=== PATIENT | male | born 1970 | race Caucasian/White ===

== ENCOUNTER → 2022-01-17 09:18 | Outpatient (CLI) | payer BC, SELFPAY ==
[2022-01-17 18:24] LABS: Alanine Aminotransferase 25 U/L (12-78); Albumin Level 4.3 g/dl (3.5-5.0); Albumin/Globulin Ratio 1.7 (1.1-1.8); Alkaline Phosphatase 64 U/L (38-126); Anion Gap 15.5 mEq/L (5-15); Aspartate Amino Transferase 26 U/L (17-59); Bilirubin,Total 0.9 mg/dl (0.2-1.3); Blood Urea Nitrogen 18 mg/dl (9-20); Calcium 9.7 mg/dl (8.4-10.2); Carbon Dioxide 26 mmol/L (22.0-30.0); Chloride 102 mmol/L (98-107); Chol/HDL Ratio 4.2 (1-3.5); Cholesterol 158 mg/dl (140-200); Estimated Glomerular Filt Rate 88 ml/min (>60); GFR (African American) 107 ML/MIN (>60); Globulin 2.5 g/dL (1.3-3.2); Glucose 134 mg/dl (74-100); HDL Cholesterol 38 mg/dl (40-60); Potassium 4.5 mmoL/L (3.5-5.1); Sodium 139 mmol/L (136-145); Total Protein,Serum 6.8 g/dl (6.3-8.2); Triglycerides 183 mg/dl (30-150); VLDL Cholesterol 37 mg/dL (0-40)
[2022-01-17 18:28] LABS: Hemoglobin A1C 7.3 % (4.0-6.0)
[2022-01-17 18:35] LABS: Direct LDL Cholesterol 87.82 mg/dL (100-129)
[2022-01-17 18:55] LABS: Prostate Specific Ag Screen 0.5 ng/ml (0.0-4.0)
== END ==
PROVIDERS: PCP Family Medicine; Visit Provider Family Medicine
DX: E11.9 Type 2 diabetes mellitus without complications (principal); I10 Essential (primary) hypertension; E78.5 Hyperlipidemia, unspecified; Z79.84 Long term (current) use of oral hypoglycemic drugs; Z12.5 Encounter for screening for malignant neoplasm of prostate
CPT/HCPCS: 80053; 80061; 83036; G0103

== ENCOUNTER 2024-10-21 13:38 | Outpatient (CLI) | payer BC, SELFPAY ==
--- OUTSIDE RECORDS SUMMARY | 2024-08-05 07:15 | XMS_ITS ---
[facility] Organization [facility] Address [address] [facility] [address] [id number] Care Team Providers Care Batch Maker Name Role Phone Sharyn Shahid Primary Care Provider Samantha Efrain Unavailable [phone] Allergies No Known Allergies REASON FOR VISIT elbow swollen right Medications Medication SIG (Take, Route, Frequency, Duration) Notes Start Date End Date Status Cephalexin 500 MG 1 capsule Orally every 12 hours; Duration: 10 days 08/05/2024 Active hydroCHLOROthiazide 25 MG 1 tab(s) orall y once a day Active Sulfamethoxazole-Trimethopri m 800-160 MG 1 tablet Orally twice a day; Duration: 10 days 08/05/2024 Active Atorvastatin Calcium 40 MG 1 tab(s) oral ly At Bed Time Active Meclizine HCl 25 MG 1 tab(s) orally 1 tab q6 hr, prn Not-Taking Toprol XL 25 MG 1 tab(s) orally once a day 05/24/2013 Not-Taking Nitroglycerin 0.4 MG 1 tab(s) sublingually every 5 minutes x 3 prn cp 05/24/2013 Not-Taking Glimepiride 4 MG 1 tablet with breakfast or the first main meal of the day Orally Once a day 03/05/2024 Active metFORMIN HCl 500 MG 2 tab(s) orally 2 times a day Active Glimepiride 2 MG 1 tablet with breakfast or the first main meal of the day Orally Once a day Active Aspirin Adult Low Dose 81 MG 1 tab(s) or ally once a day 05/24/2013 Active Vital Signs Blood pressure systolic 122 mm Hg 06/02/20 25 Blood pressure diastolic 90 mm Hg 025 Heart Rate 88 /min 08/05/2024 Height 67.75 in 08/05/2024 Weight 232.4 lbs 08/05/2024 BMI 35.59 kg/m2 08/05/2024 Encounters Encounter Location Date Provider Diagnosis [facility] [address] [place] [address] [place] [id number] 08/05/2024 Efrain Singh Right forearm cellulitis L03.113 Assessments Encounter Date Diagnosis (ICD Code) Assessment Notes Treatment Notes Treatment Clinical Notes Section Notes 08/05/2024 Right forearm cellulitis (ICD-10 - L03.113) Plan Of Treatment Medication Medication Name Sig Start Date Stop Date Notes Cephalexin 500 MG 1 capsule Orally fede ry 12 hours; Duration: 10 days 08/05/2024 Sulfamethoxazole-Trimethopri m 800-160 MG 1 tablet Orally twice a day; Duration: 10 days 08/05/2024 Next Appt Details Follow Up: via phone to repo rt progress, Reason: Provider Name:Alla Cortez er, 10/21/2024 01:00:00 PM, [address] [place] [address], [address], [place], [id number], Provider Name:Sharyn Quintero, 02/25/2025 09:00:00 AM, [address] [place] [address], [facility], [place], [id number], Progress Notes * Leonardo CASTLEDOB: 9 (53 yo M)Acc No.[id number]:08/05/2024 Progress Notes Patient: Leonardo GAMING Provider: Aleah Singh M.D. :1970 A ge:53 Y S ex:Male Date:08/05/2024 Address:[address] [place], [place] [phone] Pcp:Sharyn Shahid Subjective: * Chief Complaints: * 1 . Elbow swollen right. * HPI: E lbow/Arm: 53 year old male presents with c/o pain. c/o swelling?Pt presents today with c/o pain and swelling in the right arm and elbow. Pt sts that he felt like something had bitten his elbow and he squeezed it and a small amount of puss came out but sts that the redness and swelling is spreading. Pt sts that he can still bend his arm and has full ROM but is concerned that it is spreading. * ROS: D ERMATOLOGY: no R slava. n o H suzanne. G ASTROENTEROLOGY: no V omiting. n o D iarrhea. U ROLOGY: no D ifficulty urinating. n o B lood in urine. * Medical History: M eniere's disease, Type 2 DM, Dyslipidemia, Declines immunizations - 07/2021, Declines LDCT 02/2023; 02/2024. * Surgical History: l t. wrist 2004, vasectomy 1990, C-scope - 09/2021 / Dr. Guthrie/ polyps x 5; repeat in 5 years . * Family History: F ather: , emphysema. M other: alive. 1 sister(s) . 1 son(s) , 1 daughter(s) - healthy. . * Social History: C URRENT TOBACCO USE S moking Status: Patient does smoke, packs per day: 1, number of cigarettes per day: 20, Since age of: 20, Smoking preference: cigarettes. C affeine: yes, frequency:coffee and tea,qd. Home smoke detector use: yes. Marital Status: Single. Alcohol: Yes, Type: , Frequency: ,Years: , Determination:, rare. * Medications: T aking Atorvastatin Calcium 40 MG Tablet 1 tab(s) orally At Bed Time , Taking hydroCHLOROthiazide 25 MG Tablet 1 tab(s) orally once a day , Taking metFORMIN HCl 500 MG Tablet 2 tab(s) orally 2 times a day , Taking Aspirin Adult Low Dose 81 MG Tablet Delayed Release 1 tab(s) orally once a day , Taking Glimepiride 2 MG Tablet 1 tablet with breakfast or the first main meal of the day Orally Once a day , Taking Glimepiride 4 MG Tablet 1 tablet with breakfast or the first main meal of the day Orally Once a day , Not-Taking Nitroglycerin 0.4 MG Tablet Sublingual 1 tab(s) sublingually every 5 minutes x 3 prn cp , Not-Taking Toprol XL 25 MG Tablet Extended Release 24 Hour 1 tab(s) orally once a day , Not-Taking Meclizine HCl 25 MG Tablet 1 tab(s) orally 1 tab q6 hr, prn , Discontinued Cefuroxime Axetil 500 MG Tablet 1 tablet Orally every 12 hrs , Discontinued Ciprofloxacin-dexAMETHasone 0.3-0.1 % Suspension 4 drops into affected ear Otic Twice a day , Medication List reviewed and reconciled with the patient * Allergies: N .K.D.A. Objective: * Vitals: W t: 232.4, Temp: 98.3, BP: 122/90, HR: 88, Nurse: BRITT, Ht: 67.75, BMI:35.59. * Examination: G eneral Examination: General Appearance: N AD. S kin: s ome edema and dull skin redness over the right olecranon and extending to the medial side of the elbow. ? Assessment: * Assessment: [facility]. [facility] - L03.113 (Primary) Plan: * Treatment: * Follow Up: v ia phone to report progress * Images: Billing Information: * Visit Code: 94058 Office Visit, Est Pt., Level 3. * Procedure Codes: * Electronic signature of Narda Singh MD on 10/21/2024 at 01:41 PM EDT Sign off status: Pending * Provider: Aleah Singh M.D. Date: 08/05/2024 Generated for Christopher chaparro/Judith/Sandra on: 10/21/2024 01:41 PM EDT History and Physical Notes * HPI (History of Present Illness) Category Sub-Category Detail Notes Category Not es Elbow/Arm pain swelling Pt presents today wi th c/o pain and swelling in the right arm and elbow. Pt sts that he felt like something had bitten his elbow and he squeezed it and a small amount of puss came out but sts that the redness and swelling is spreading. Pt sts that he can still bend his arm and has full ROM but is concerned that it is spreading Examination Category Sub-Category Detail Notes Category Not es General Examination General Appearance: NAD Skin: some edema and dull skin redness over the right olecranon and extending to the medial side of the elbow
--- OUTSIDE RECORDS SUMMARY | 2024-08-22 05:15 | XMS_ITS ---
Author Organization [facility] Address [address] [facility] [address] [place] [id number] Care Team Providers Care Drug Abuse Technician Name Role Phone Sharyn Shahid Primary Care Provider [phone] Allergies No Known Allergies Results Component Value Reference Range Notes Glycohemoglobin A1c (in hous e) Reviewed date:08/27/2024 01:14:34 PM Interpretation:8.0% Performing Lab: Notes/Report: 8.0% glycohemoglobin 8.0% 5 - 6.5 % P-Comprehensive Metabolic Pa robert (CMP) Reviewed date:08/27/2024 01:14:34 PM Interpretation:FBS 142 Performing Lab: Notes/Report: Test performed by [facility], [facility] [address] [place] [address] , [address], [place] [address] Tex Jewell MD, Highway Maintainer CLIA: [id number] Sodium 139 135-145 mmol/L Potassium 4.6 3.5-5.3 mmol/L Chloride 102 97-108 mmol/L CO2 25 22-32 mmol/L Glucose 142 65-99 mg/dL BUN 10 6-20 mg/dL Creatinine 0.88 0.70-1.30 mg/dL Calcium 10.0 8.6-10.4 mg/dL eGFR by Creatinine 101 >59 mL/min/1.73m2 Protein 7.0 6.0-8.3 g/dL Albumin 4.3 3.5-5.3 g/dL Alkaline Phosphatase 57 40-129 IU/L ALT (SGPT) 22 <5-55 IU/L AST (SGOT) 15 <5-46 IU/L Bilirubin, Total 0.8 <0.2-1.2 mg/dL A/G Ratio 1.6 1.1-2.5 P-Lipid Panel Reviewed date:08/27/2024 01:14:34 PM Interpretation:LDL 62 Performing Lab: Notes/Report: Test performed by [facility] [address] [facility] [address], [place] [address] Tex Jewell MD, Highway Maintainer CLIA: [id number] Cholesterol 136 <200 mg/dL Triglycerides 199 <150 mg/dL HDL Cholesterol 34 >39 mg/dL Cholesterol / HDL Ratio 4.00 0.00-4.99 Ratio Non-HDL Cholesterol 102 <130 mg/dL LDL Cholesterol (Calculation) 62 <130 mg/dL LDL Cholesterol Levels* Less than 100 mg/dL Optimal 100 to 129 mg/dL Near Optimal/ Above Optimal 130 to 159 mg/dL Borderline High 160 to 189 mg/dL High 190 mg/dL and above Very High * Categories as recommended by the 2004 ATPIII guidelines LDL/HDL Ratio 1.8 <3.3 Ratio LDL Cholesterol Patient History Test Date: 08/24/2023 LDL Results: 63 Units: mg/dL % Change: -5% Test Date: 02/22/2024 LDL Results: 63 Units: mg/dL % Change: 0% Test Date: 08/22/2024 LDL Results: 62 Units: mg/dL % Change: -1% P-PSA Reviewed date:08/27/2024 01:14:34 PM Interpretation:0.4 Performing Lab: Notes/Report: Test performed by [facility], [address] , [facility], [place] [address] Tex Jewell MD, Highway Maintainer CLIA: [id number] PSA 0.40 <4.00 ng/mL Please note this is an ultrasensitive PSA assay with a lower limit of detection of 0.014 ng/mL. This test is performed by the [employer] ECLIA methodology. Values obtained with different assay methods or kits cannot be directly compared. REASON FOR VISIT 6 months, Needs labs with PSA, low dose chest CT, diabetic eye exam, Tdap, & shingles vaccine Medications Medication SIG (Take, Route, Frequency, Duration) Notes Start Date End Date Status Toprol XL 25 MG 1 tab(s) orally once a day 05/24/2013 Not-Taking Meclizine HCl 25 MG 1 tab(s) orally 1 tab q6 hr, prn Not-Taking Glimepiride 4 MG 1 tablet with breakfast or the first main meal of the day Orally Once a day 03/05/2024 Active Sulfamethoxazole-Trimethopri m 800-160 MG 1 tablet Orally twice a day; Duration: 10 days Active Cephalexin 500 MG 1 capsule Orally every 12 hours; Duration: 10 days Active Nitroglycerin 0.4 MG 1 tab(s) sublingually every 5 minutes x 3 prn cp 05/24/2013 Not-Taking Atorvastatin Calcium 40 MG 1 tab(s) oral ly At Bed Time Active hydroCHLOROthiazide 25 MG 1 tab(s) orall y once a day Active Aspirin Adult Low Dose 81 MG 1 tab(s) or ally once a day 05/24/2013 Active metFORMIN HCl 500 MG 2 tab(s) orally 2 times a day Active Vital Signs Blood pressure systolic 110 mm Hg 08/23/19 25 Blood pressure diastolic 70 mm Hg 025 Heart Rate 72 /min 08/22/2024 Height 67.75 in 08/22/2024 Weight 228.8 lbs 08/22/2024 BMI 35.04 kg/m2 08/22/2024 Encounters Encounter Location Date Provider Diagnosis [facility] [address] [facility] [address] [place], [place] [id number] 08/22/2024 R Stan Shahid Right forearm cellulitis L03.113 ; Type 2 diabetes mellitus without complication, without long-term current use of insulin E11.9 ; Dyslipidemia E78.5 ; Meniere's disease of both ears H81.03 ; Tobacco use disorder Z72.0 and Screening for prostate cancer Z12.5 Assessments Encounter Date Diagnosis (ICD Code) Assessment Notes Treatment Notes Treatment Clinical Notes Section Notes 08/22/2024 Right forearm cellulitis (ICD-10 - L03.113) 08/22/2024 Type 2 diabetes mellitus without complication, without long-term current use of insulin (ICD-10 - E11.9) 08/22/2024 Dyslipidemia (ICD-10 - E78.5) 08/22/2024 Meniere's disease of both ears (ICD-10 - H81.03) 08/22/2024 Tobacco use disorder (ICD-10 - Z72.0) Declines LDCT 08/22/2024 Screening for prostate cancer (ICD-10 - Z12.5) Plan Of Treatment Medication Medication Name Sig Start Date Stop Date Notes Glimepiride 4 MG 1 tablet with breakf ast or the first main meal of the day Orally Once a day 03/05/2024 Sulfamethoxazole-Trimethopri m 800-160 MG 1 tablet Orally twice a day; Duration: 10 days Cephalexin 500 MG 1 capsule Orally fede ry 12 hours; Duration: 10 days Atorvastatin Calcium 40 MG 1 tab(s) oral ly At Bed Time hydroCHLOROthiazide 25 MG 1 tab(s) orall y once a day metFORMIN HCl 500 MG 2 tab(s) orally 2 t imes a day Treatment Notes Assessment Notes Tobacco use disorder Declines LDCT Next Appt Details Follow Up: 6 Months, Reason: Provider Name:Alla Jacob Diego er, 10/21/2024 01:00:00 PM, [address] [facility] [address], [address], [place], [place], [id number], Provider Name:Sharyn Casillas et, 02/25/2025 09:00:00 AM, [address] [facility], [address], [place], [place], [id number], Progress Notes * Leonardo CASTLEDOB: 9 (53 yo M)Acc No.[id number]:08/22/2024 Progress Notes Patient: Leonardo GAMING Provider: Sharyn Shahid M.D. :1970 A ge:53 Y S ex:Male Date:08/22/2024 Address:[address] [place] [address] Subjective: * Chief Complaints: * 1 . 6 months. 2. Needs labs with PSA, low dose chest CT, diabetic eye exam, Tdap, & shingles vaccine. * HPI: H PI: 53 year old male presents with c/o Patient is here today for?Pt is here today for a 6 month check up. Pt is fasting. E lbow/Arm: Further to previous office visit, the swelling and redness of his right elbow has improved but not completely resolved. * ROS: D ERMATOLOGY: no R slava. [...] orally once a day , Taking Glimepiride 4 MG Tablet 1 tablet with breakfast or the first main meal of the day Orally Once a day , Taking Cephalexin 500 MG Capsule 1 capsule Orally every 12 hours , Taking Sulfamethoxazole-Trimethoprim 800-160 MG Tablet 1 tablet Orally twice a day , Not-Taking Nitroglycerin 0.4 MG Tablet Sublingual 1 tab(s) sublingually every 5 minutes x 3 prn cp , Not-Taking Toprol XL 25 MG Tablet Extended Release 24 Hour 1 tab(s) orally once a day , Not-Taking Meclizine HCl 25 MG Tablet 1 tab(s) orally 1 tab q6 hr, prn , Medication List reviewed and reconciled with the patient * Allergies: N .K.D.A. Objective: * Vitals: W t: 228.8, Temp: 98.6, BP: 110/70, HR: 72, Nurse: [facility], Ht: 67.75, BMI:35.04. * Examination: G eneral Examination: HEENT: L eft external canal is swollen and mostly occluded with debris. Attempted to irrigate ear caused too much discomfort.. O ral cavity: n o lesions, mucosa moist and WNL, no erythema. H eart: R SR. L ungs: C oarse breath sounds. No rales or wheezes. E xtremities: n o leg edema. Mild residual swelling and induration over the olecranon process. Range of motion of the elbow is full. ? Assessment: * Assessment: 1. R ight forearm cellulitis - L03.113 (Primary) 2 . T ype 2 diabetes mellitus without complication, without long-term current use of insulin - E11.9 3 . D yslipidemia - E78.5 4 . M eniere's disease of both ears - H81.03 5. T obacco use disorder - Z72.0 6 . S creening for prostate cancer - Z12.5 Plan: * Treatment: 2. T ype 2 diabetes mellitus without complication, without long-term current use of insulin Refill metFORMIN HCl Tablet, 500 MG, 2 tab(s), orally, 2 times a day, 360, Refills 1; R efill Glimepiride Tablet, 4 MG, 1 tablet with breakfast or the first main meal of the day, Orally, Once a day, 90, Refills 1. L AB: Glycohemoglobin A1c (in house) (Collection Date & Time - 08/22/2024) 8 .0% Value Reference Range g lycohemoglobin 8.0% 5 - 6.5 % * Carol Smith 08/22/2024 10:3 8:54 AM EDT > Sharyn Shahid 08/27/2024 01:14:16 PM EDT > See phone encounter 3.?Dyslipidemia? Refill Atorvastatin Calcium Tablet, 40 MG, 1 tab(s), orally, At Bed Time, 90, Refills 1.?LAB: P-Comprehensive Metabolic Panel (CMP) (Collection Date & Time - 08/22/2024 08:42 AM)?FBS 142* Value Reference Range A /G Ratio 1.6 1.1-2.5 - * A lbumin 4.3 3.5-5.3 - g/dL * A lkaline Phosphatase 57 40-129 - IU/L * A LT (SGPT) 22 <5-55 - IU/L * A ST (SGOT) 15 <5-46 - IU/L * B ilirubin, Total 0.8 <0.2-1.2 - mg/dL * B UN 10 6-20 - mg/dL * C alcium 10.0 8.6-10.4 - mg/dL * C hloride 102 97-108 - mmol/L * C O2 25 22-32 - mmol/L * C reatinine 0.88 0.70-1.30 - mg/dL * G lucose 142 H 65-99 - mg/dL * P otassium 4.6 3.5-5.3 - mmol/L * S odium 139 135-145 - mmol/L * P rotein 7.0 6.0-8.3 - g/dL * e GFR by Creatinine 101 >59 - mL/min/1.73m2 * Sharyn Shahid 08/27/2024 01:14:16 PM EDT > See phone encounter ?LAB: P-Lipid Panel (Collection Date & Time - 08/22/2024 08:42 AM)?LDL 62* Value Reference Range C holesterol / HDL Ratio 4.00 0.00-4.99 - Ratio * C holesterol 136 <200 - mg/dL * H DL Cholesterol 34 L >39 - mg/dL * L DL Cholesterol (Calculation) 62 <130 - mg/d L * L DL/HDL Ratio 1.8 <3.3 - Ratio * N on-HDL Cholesterol 102 <130 - mg/dL * T riglycerides 199 H <150 - mg/dL * Sharyn Shahid 08/27/2024 01:14:16 PM EDT > See phone encounter 4.?Meniere's disease of both ears? Refill hydroCHLOROthiazide Tablet, 25 MG, 1 tab(s), orally, once a day, 90, Refills 1.??5.?Tobacco use disorder? Notes: Declines LDCT??6.?Screening for prostate cancer?LAB: P-PSA (Collection Date & Time - 08/22/2024 08:42 AM)?0.4* Value Reference Range P SA 0.40 <4.00 - ng/mL * Sharyn Shahid 08/27/2024 01:14:16 PM EDT > See phone encounter * Procedure Codes: 8 3036 GLYCATED HEMOGLOBIN TEST, Modifiers: QW , 3052F HG A1C>EQUAL 8.0%<EQUAL 9.0%, G8783 BP SCR PRFRM RCMDD DEFIND SCR INTVL, G8752 MOST RECENT SYSTOLIC BP < 140MM HG, G8754 MOST RECENT DIASTOLIC BP < 90MM HG * Follow Up: 6 Months * Images: Billing Information: * Visit Code: 65829 Office Visit, Est Pt., Level 4. * Procedure Codes: 08979 GLYCATED HEMOGLOBIN TEST. Modifiers: QW 3052F HG A1C>EQUAL 8.0%<EQUAL 9.0%. G8783 BP SCR PRFRM RCMDD DEFIND SCR INTVL. G8752 MOST RECENT SYSTOLIC BP < 140MM HG. G8754 MOST RECENT DIASTOLIC BP < 90MM HG. * Electronic signature of Sharyn Shahid MD on 10/21/2024 at 01:41 PM EDT Sign off status: Pending * Provider: Sharyn Shahid M.D. Date: 0 08/22/2024 Generated for Christopher chaparro/Judith/Asifitting on: 0 10/21/2024 01:41 PM EDT History and Physical Notes * HPI (History of Present Illness) Category Sub-Category Detail Notes Category Not es HPI Patient is here today for Pt is here today for a 6 month check up. Pt is fasting Examination Category Sub-Category Detail Notes Category Not es General Examination HEENT: Left externa l canal is swollen and mostly occluded with debris. Attempted to irrigate ear caused too much discomfort. Heart: RSR Lungs: Coarse breath sounds . No rales or wheezes Extremities: no leg edema. Mild r esidual swelling and induration over the olecranon process. Range of motion of the elbow is full Oral cavity: no lesions, mucosa m oist and WNL, no erythema
--- OUTSIDE RECORDS SUMMARY | 2024-10-21 13:41 | XMS_ITS | Encounter Summary ---
Author Organization [place] [address] Care Team Providers Care Drop Clipper Name Role Phone Sharyn Shahid Primary Care Provider [phone] Encounter Details Date Type Department Care Team (Late st Contact Info) Description 06/04/2015 Hospital Encounter EDG LAB [place] [phone] Social History Tobacco Use Types Packs/Day Years Used Date Smoking Tobacco: Every Day Cigarettes 1 25 Smokeless Tobacco: Never Alcohol Use Standard Drinks/Week Comments No 0 (1 standard drink = 0.6 oz pur e alcohol) Sex and Gender Information Value Date Recorded Sex Assigned at Not on file Legal Sex Male 6:18 PM EDT Gender Identity Not on file Sexual Orientation Not on file documented as of this encounter Plan of Treatment Not on file documented as of this encounter Visit Diagnoses Not on filedocumented in this encounter Care Teams Drop Clipper Relationship Specialty Start Date End Date Sharyn Shahid [address] [place] [address] [address] [place] [id number] PCP - General Family Medicine 05/06/13 documented as of this encounter
--- OUTSIDE RECORDS SUMMARY | 2024-10-21 13:41 | XMS_ITS | Patient Health Record ---
Author Organization [facility] Address [address] [facility] 36 [facility] [address] [place] [id number] Care Team Providers Care Skip Pitman Name Role Phone Sharyn Shahid Primary Care Provider [phone] Alla Zuñiga Unavailable [phone] Efrain Singh Unavailable [phone] Allergies No Known Allergies Results Component Value Reference Range Notes Glycohemoglobin A1c (in hous e) Reviewed date:08/27/2024 01:14:34 PM Interpretation:8.0% Performing Lab: Notes/Report: 8.0% glycohemoglobin 8.0% 5 - 6.5 % P-Comprehensive Metabolic Pa robert (CMP) Reviewed date:08/27/2024 01:14:34 PM Interpretation:FBS 142 Performing Lab: Notes/Report: Test performed by [facility], [facility] , [address], [place] [address] Tex Jewell MD, [employer]person [employer] CLIA: [id number] Sodium 139 135-145 mmol/L Potassium 4.6 3.5-5.3 [...] 62 Performing Lab: Notes/Report: Test performed by [facility], [address] , [place] [address] Tex Jewell MD, Salesperson [employer] CLIA: [id number] Cholesterol 136 <200 mg/dL Triglycerides 199 <150 [...] Interpretation:0.4 Performing Lab: Notes/Report: Test performed by [facility] [address] , [place] [address] Tex Jewell MD, Salesperson [employer] CLIA: [id number] PSA 0.40 <4.00 ng/mL Please note this is an ultrasensitive PSA assay with a lower limit of detection of 0.014 ng/mL. This test is performed by the [employer] ECLIA methodology. Values obtained with different assay methods or kits cannot be directly compared. CBC Fingerstick (in house) ( Not yet reviewed by provider) Interpretation: Performing Lab: Notes/Report: wbc 10.2 3.5 - 10 lym 32.7% 15 - 50 mid 7.2% 2 - 15 gran 60.1% 35 - 80 rbc 5.37 3.5 - 5.5 hgb 17.1 11.5 - 16.5 hct 50.6 35 - 55 mcv 94.1 75 - 100 mch 31.7 25 - 35 mchc 33.7 31 - 38 plat 230 100 - 400 Glycohemoglobin A1c (in hous e) Reviewed date:03/05/2024 08:36:48 AM Interpretation:7.9 Performing Lab: Notes/Report: 7.9 glycohemoglobin 7.9% 5 - 6.5 % P-Comprehensive Metabolic Pa robert (CMP) Reviewed date:03/05/2024 08:36:48 AM Interpretation:gluc 150 Performing Lab: Notes/Report: Test performed by [facility] [address] [place] [address] , [address], [place] [address] Tex Jewell MD, Salesperson [employer] CLIA: [id number] Sodium 139 135-145 mmol/L Potassium 4.5 3.5-5.3 mmol/L Chloride 104 97-108 mmol/L CO2 25 22-32 mmol/L Glucose 150 65-99 mg/dL BUN 10 6-20 mg/dL Creatinine 1.03 0.70-1.30 mg/dL Calcium 9.5 8.6-10.4 mg/dL eGFR by Creatinine 86 >59 mL/min/1.73m2 Protein 6.9 6.0-8.3 g/dL Albumin 4.2 3.5-5.3 g/dL Alkaline Phosphatase 58 40-129 IU/L ALT (SGPT) 20 <5-55 IU/L AST (SGOT) 14 <5-46 IU/L Bilirubin, Total 1.1 <0.2-1.2 mg/dL A/G Ratio 1.6 1.1-2.5 P-Lipid Panel Reviewed date:03/05/2024 08:36:48 AM Interpretation:trigs 165, hdl 37 Performing Lab: Notes/Report: Test performed by [facility] [address] [place] [address] , [address], [place] [address] Tex Jewell MD, Salesperson [employer] CLIA: [id number] Cholesterol 133 <200 mg/dL Triglycerides 165 <150 mg/dL HDL Cholesterol 37 >39 mg/dL Cholesterol / HDL Ratio 3.59 0.00-4.99 Ratio Non-HDL Cholesterol 96 <130 mg/dL LDL Cholesterol (Calculation) 63 <130 mg/dL LDL Cholesterol Levels* Less than 100 mg/dL Optimal 100 to 129 mg/dL Near Optimal/ Above Optimal 130 to 159 mg/dL Borderline High 160 to 189 mg/dL High 190 mg/dL and above Very High * Categories as recommended by the 2004 ATPIII guidelines LDL/HDL Ratio 1.7 <3.3 Ratio LDL Cholesterol Patient History Test Date: 02/21/2023 LDL Results: 67 Units: mg/dL % Change: +24% Test Date: 08/24/2023 LDL Results: 63 Units: mg/dL % Change: -5% Test Date: 02/22/2024 LDL Results: 63 Units: mg/dL % Change: 0% Medications Medication SIG (Take, Route, Frequency, Duration) Notes Start Date End Date Status Aspirin Adult Low Dose 81 MG 1 tab(s) or ally once a day 05/24/2013 Active Atorvastatin Calcium 40 MG 1 tablet Oral ly Once a day at bedtime; Duration: 90 days Active Nitroglycerin 0.4 MG 1 tab(s) sublingually every 5 minutes x 3 prn cp 05/24/2013 Not-Taking Doxycycline Monohydrate 100 MG 1 capsule Orally twice a day; Duration: 7 days 10/21/2024 Active Toprol XL 25 MG 1 tab(s) orally once a day 05/24/2013 Not-Taking Meclizine HCl 25 MG 1 tab(s) orally 1 tab q6 hr, prn Not-Taking hydroCHLOROthiazide 25 MG 1 tab(s) orall y once a day Active metFORMIN HCl 500 MG 2 tab(s) orally 2 times a day Active Glimepiride 4 MG 1 tablet with breakfast or the first main meal of the day Orally Once a day 03/05/2024 Active Farxiga 5 MG 1 tablet Orally Once a day 08/27/2024 Active Immunizations Vaccine Route Administration Date Status Comme nts DT, 7 YEARS OR OLDER Unknown 05/10/1996 Administered Problems Problem Type SNOMED Code ICD Code Onset Dates Problem Status W/U Status Risk Notes Problem Otitis externa (4885942) Otitis externa (H60.90) Active confirmed Problem Dyslipidemia (714145069) Dyslipidemia (E78.5) Active confirmed Problem Type II diabetes mellitus without complication (401237652) Type 2 diabetes mellitus without complication, without long-term current use of insulin (E11.9) Active confirmed Problem Menieres disease (66274120) 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 Vital Signs Heart Rate 68 /min 10/21/2024 Blood pressure diastolic 90 mm Hg 10/21/2024 Height 67.75 in 10/21/2024 Blood pressure systolic 130 mm Hg 10/21/2024 Weight 223.2 lbs 10/21/2024 BMI 34.18 kg/m2 10/21/2024 Encounters Encounter Location Date Provider Diagnosis [facility] [address] [place] [id number] 02/22/2024 R Stan Shahid Type 2 diabetes mellitus without complication, without long-term current use of insulin E11.9 ; Dyslipidemia E78.5 ; Meniere's disease of both ears H81.03 ; Tobacco use disorder Z72.0 and Otitis externa H60.90 [facility] [address] [place] [id number] 08/05/2024 Efrain [place] Right forearm cellulitis L03.[address] [place] [address] [facility] [address] [place] [id number] 08/22/2024 R Stan Avitiafleet Right forearm cellulitis L03.113 ; Type 2 diabetes mellitus without complication, without long-term current use of insulin E11.9 ; Dyslipidemia E78.5 ; Meniere's disease of both ears H81.03 ; Tobacco use disorder Z72.0 and Screening for prostate cancer Z12.5 Brad [address] [facility] [address] [place] [id number] 10/21/2024 Alla Zuñiga Acute URI J06.9 ; Ac yavapai-apache bronchitis, unspecified organism J20.9 ; Insect bite (nonvenomous) of lower back and pelvis, initial encounter S30.860A and Bitten or stung by nonvenomous insect and other nonvenomous arthropods, initial encounter W57.XXXA Brad [address] [facility] [address] [place] [id number] 03/05/2024 R Stan Zhera Type 2 diabetes mellitus without complication, without long-term current use of insulin E11.9 Brad [address] [place] [id number] 08/09/2024 R Stan Cortezt [place] [address] [place], [place] [id number] 08/19/2024 R Stan Webbeet [place] [address] [place] [id number] 08/27/2024 R Stan Shahid Assessments Encounter Date Diagnosis (ICD Code) Assessment Notes Treatment Notes Treatment Clinical Notes Section Notes 02/22/2024 Dyslipidemia (ICD-10 - E78.5) 02/22/2024 Type 2 diabetes mellitus without complication, without long-term current use of insulin (ICD-10 - E11.9) 03/05/2024 Type 2 diabetes mellitus without complication, without long-term current use of insulin (ICD-10 - E11.9) 08/05/2024 Right forearm cellulitis (ICD-10 - L03.113) 08/22/2024 Type 2 diabetes mellitus without complication, without long-term current use of insulin (ICD-10 - E11.9) 08/22/2024 Right forearm cellulitis (ICD-10 - L03.113) 10/21/2024 Acute URI (ICD-10 - J06.9) 10/21/2024 Acute bronchitis, unspecified organism (ICD-10 - J20.9) 10/21/2024 Insect bite (nonvenomous) of lower back and pelvis, initial encounter (ICD-10 - S30.860A) 08/22/2024 Dyslipidemia (ICD-10 - E78.5) 02/22/2024 Meniere's disease of both ears (ICD-10 - H81.03) 02/22/2024 Tobacco use disorder (ICD-10 - Z72.0) Declines LDCT 08/22/2024 Meniere's disease of both ears (ICD-10 - H81.03) 10/21/2024 Bitten or stung by nonvenomous insect and other nonvenomous arthropods, initial encounter (ICD-10 - W57.XXXA) 02/22/2024 Otitis externa (ICD-10 - H60.90) f/u 7-10 days to irrigate ear 08/22/2024 Tobacco use disorder (ICD-10 - Z72.0) Declines LDCT 08/22/2024 Screening for prostate cancer (ICD-10 - Z12.5) Plan Of Treatment Pending Test Test Name Order Date Influenza Screen (in house) 10/21/2024 CXR 10/21/2024 CBC Fingerstick (in house) 10/21/2024 Covid test (in house) 10/21/2024 Next Appt Details Provider Name:Alla Cortez er, 10/21/2024 01:00:00 PM, [address], [address], [place], [id number], Provider Name:Sharyn Casillas et, 02/25/2025 09:00:00 AM, [address], [address], [place], [phone], Insurance Providers Payer Name Payer Address Payer Phone Subscriber Number Group Number Insured Name Patient Relationship to Insured Coverage Start Date Coverage End Date [employer] [address] [place] [address] [id number] Leonardo Ellis Self - patient is the insured Medical (General) History Medical History History ICD Code Meniere's disease Type 2 DM Dyslipidemia Declines immunizations - 07/2021 Declines LDCT 02/2023; 02/2024 Surgical History Surgery Date(Month/Year) lt. wrist 2004 vasectomy 1990 C-scope - 09/2021 / Dr. Guthrie/ polyps x 5 ; repeat in 5 years
--- OUTSIDE RECORDS SUMMARY | 2024-10-21 13:42 | XMS_ITS | Clinical Summary ---
Author Organization [facility] Address [address] [place] [address] Phone Care Team Providers Care Signal Repairer Name Role Phone Sharyn Shahid Primary Care Provider [phone] Allergies No known active allergies Medications meclizine (ANTIVERT) 25 mg tablet Take 1 Tab by mouth every 6 hours as needed for Dizziness. 15 Tab 0 4 Active aspirin 81 mg tablet Take 81 mg by mouth daily. Active predniSONE (DELTASONE) 10 mg Oral TabletIndicatio ns:Meniere's disease, right,Dizziness Take 60 mg x 3 days; take 40 mg x 3 days; 20 mg x 3 days and 10 mg x 3 days 39 Tab 8 Active Additional Information Patient not taking.Reported on 11/30/2021 predniSONE (DELTASONE) 10 mg Oral TabletIndicatio ns:Dizziness Take 10 mg daily as needed for dizziness. 40 Tab 9 Active Additional Information Patient not taking.Reported on 11/30/2021 hydroCHLOROthia zide (MICROZIDE) 12.5 mg Oral CapsuleIndicati ons:Meniere's disease, right,Dizziness Take 1 Cap by mouth daily. 30 Cap 11 9 Active Additional Information Patient not taking.Reported on 11/30/2021 hydroCHLOROthia zide (HYDRODIURIL) 25 mg Oral TabletIndicatio ns:Meniere's disease, right,Dizziness TAKE ONE AND ONE-HALF TABLET BY MOUTH DAILY 30 Tab 1 0 Active atorvastatin (LIPITOR) 40 mg Oral TabletIndicatio ns:Positive colorectal cancer screening using DNA-based stool test 2 Active metFORMIN (GLUCOPHAGE) 500 mg Oral TabletIndicatio ns:Positive colorectal cancer screening using DNA-based stool test 2 Active diclofenac (VOLTAREN) 75 mg Oral Tablet, Delayed Release (E.C.)Indicatio ns:Right elbow tendonitis Take 1 Tablet by mouth 2 times daily. 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 Surgical History Surgery Date Site/Laterality Comments VASECTOMY ORTHOPEDIC SURGERY 2005 left wrist plate and screws Medical History Medical History Date Comments Meniere's disease Other and unspecified angina pectoris Family History Medical History Relation Name Comments No Known Problems Brother Hypertension Father No Known Problems Maternal Grandfather No Known Problems Maternal Grandmother Cancer Mother breast Hypertension Mother No Known Problems Other No Known Problems Paternal Grandfather No Known Problems Paternal Grandmother No Known Problems Sister Allergies Neg Hx Bleeding Prob Neg Hx Hearing Loss Neg Hx Heart Disease Neg Hx Migraines Neg Hx Thyroid Disease Neg Hx Relation Name Status Comments Brother Father Maternal Grandfather Maternal Grandmother Mother Alive Other Paternal Grandfather Paternal Grandmother Sister Alive Social History Tobacco Use Types Packs/Day Years Used Date Smoking Tobacco: Every Day Cigarettes 1 25 Smokeless Tobacco: Never Tobacco Cessation:Ready to Q uit: No; Counseling Given: Yes Alcohol Use Standard Drinks/Week Comments No 0 (1 standard drink = 0.6 oz pur e alcohol) Sex and Gender Information Value Date Recorded Sex Assigned at Not on file Legal Sex Male 6:18 PM EDT Gender Identity Not on file Sexual Orientation Not on file Obstetrics History Last Filed Vital Signs Vital Sign Reading Time Taken Comments Blood Pressure 121/74 11/30/2021 1:46 PM EDT Pulse 67 11/30/2021 1:46 PM EDT Temperature 36.3 C (97.3 F) 11/30/2021 11:53 AM EDT Respiratory Rate 16 11/30/2021 11:53 AM EDT Oxygen Saturation 96% 11/30/2021 1:46 PM EDT Inhaled Oxygen Concentration - - Weight 102.1 kg (225 lb) 11/30/2021 11:53 AM EDT Height 172.7 cm (5' 8 ) 11/30/2021 11:53 AM EDT Body Mass Index 34.21 11/30/2021 11:53 AM EDT Plan of Treatment Health Maintenance Due Date Last Done Comments Annual Wellness Exam 10/24/1971 Hepatitis B Vaccine (1 of 3 - 19+ 3-dose series) 10/24/1987 Pneumococcal Vaccine 50+ (1 of 2 - PCV) 10/24/1987 DTaP/TDaP/Td (1 - Tdap) 05/11/1996 05/10/1996 FIT 2013 Sigmoidoscopy 2013 Virtual Colonography 2013 Low Dose Lung Cancer Screening 2018 Zoster (1 of 2) 2018 COVID-19 Vaccine (1 - 2023-2 5 season) 2023 Cologuard 07/15/2024 07/15/2021 Influenza Vaccine (#1) 2024 Colon Cancer Screening 12/01/2031 Colonoscopy 12/01/2031 11/30/2021 Meningococcal B Vaccine Aged Out No l onger eligible based on patient's age to complete this topic Procedures Procedure Name Priority Date/Time Associated Diagnosis Comments GMED COLONOSCOPY Routine 11/30/2021 12:4 0 PM EDT Positive colorectal cancer screening using DNA-based stool test from Last 3 Months or Most Recently Relevant to Health Maintenance Results * GMED COLONOSCOPY (11/30/2021 12:40 PM EDT) 11/30/2021 12:4 0 PM EDT Impressions [facility] - 11/30/2021 1:37 PM EDT Plan: This section is an excerpt of the full report. us Mathew Guthrie MD GI PROCEDURE ORDERABLES Final Result [facility] [address] [place] [address] from Last 3 Months or Most Recently Relevant to Health Maintenance Insurance ANTHEM PPO ANTHEM PPO ANTHEM PPO [id number] [facility] ANTHEM PPO Care Teams Signal Repairer Relationship Specialty Start Date End Date Sharyn Shahid [address] [place] [address] [address] [place] [address] PCP - General Family Medicine 05/06/13
--- OUTSIDE RECORDS SUMMARY | 2024-10-21 13:42 | XMS_ITS | Clinical Summary ---
Author Organization [facility] Address [address] [place] [address] Care Team Providers Care Mower Mechanic Name Role Phone Jabari Shahid MD Primary Care Provider [phone] Source Comments This information has been disclosed to you from confidential records protectedfrom disclosure by state law. You shall make no further disclosure of thisinformation without the specific, written, and informed release of theindividual to whom it pertains, or as otherwise permitted by law. A generalauthorization for the release of medical or other information is not sufficientfor the purposes of therelease of HIV test results or diagnoses. [id number] Allergies No known active allergies Medications aspirin 81 MG EC tablet Take by mouth. Active hydroCHLOROthiaz vickie (HYDRODIURIL) 25 MG tablet Take by mouth. 05/19/2015 Active Active Problems Problem Noted Date Diagnosed Date Meniere's disease of right ear 11/30/2015 Smoker 11/30/2015 Non morbid obesity due to excess calories 2015 Social History Tobacco Use Types Packs/Day Years Used Date Smoking Tobacco: Every Day Smokeless Tobacco: Never Alcohol Use Standard Drinks/Week Comments No 0 (1 standard drink = 0.6 oz pur e alcohol) Sex and Gender Information Value Date Recorded Sex Assigned at Not on file Legal Sex Male 4:21 PM EST Gender Identity Not on file Sexual Orientation Not on file Last Filed Vital Signs Vital Sign Reading Time Taken Comments Blood Pressure 130/89 11/30/2015 9:10 AM EDT Pulse 84 11/30/2015 9:10 AM EDT Temperature - - Respiratory Rate 16 11/30/2015 9:10 AM EDT Oxygen Saturation - - Inhaled Oxygen Concentration - - Weight 102.1 kg (225 lb) 11/30/2015 9:10 AM EDT Height 172.7 cm (5' 8 ) 11/30/2015 9:10 AM EDT Body Mass Index 34.21 11/30/2015 9:10 AM EDT Plan of Treatment Not on file Insurance PEGGY OTHER Care Teams Mower Mechanic Relationship Specialty Start Date End Date Jabari Shahid MD [address] [place] [place] [address] PCP - General Family Medicine 11/30/15
--- NOTE | 2024-10-21 13:43 | XR_ITS ---
FINAL REPORT CLINICAL HISTORY: ACUTE URI, BRONCHITIS FINDINGS: 2 views of the chest were obtained . The heart is normal in size. The mediastinum is within normal limits. The lungs are clear. There is no pneumothorax. Osseous structures are unremarkable. IMPRESSION: No acute cardiopulmonary process. Reviewed, Interpreted and Dictated by Aman Chandler MD Transcribed by Merry Kan Authenticated and [facility]
== END 2024-10-21 23:59 ==
LOC: RAD 13:39
PROVIDERS: PCP Family Medicine; Visit Provider Family Medicine
DX: J06.9 Acute upper respiratory infection, unspecified (principal); J20.9 Acute bronchitis, unspecified
CPT/HCPCS: 71046